=== PATIENT | female | born 1985 | race Two or more races ===

== ENCOUNTER 2018-10-22 13:29 | Emergency (ER) | payer MEDICAID ==
[~2018-10-22] VITALS: Ht 157.5 cm; Wt 63.5 kg
[2018-10-22 14:00] VITALS: BP 127/93
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
[2018-10-22] MEDS ORDERED: ROBAXIN-750750 MG PO (14:24)
[2018-10-22] MEDS ORDERED: IBUPROFEN600 MG ORAL (14:24)
[2018-10-22 14:45] VITALS: BP 127/93
--- NOTE | 2018-10-22 14:45 | NUR ---
ED Nurse Note: Pt cleared by health care Provider for discharge. DC instructions/prescription was given and explained to pt and verbalized understanding of teachings. All medical deviecs such as ID band removed. Pt is AAO x4, ambulatory and left with all personal belongings.
== END 2018-10-22 14:45 | disposition home or self-care (01) ==
LOC: EMR 14:30
DX: S00.83XA Contusion of other part of head, initial encounter (principal); Y04.8XXA Assault by other bodily force, initial encounter; Y93.9 Activity, unspecified; Y92.9 Unspecified place or not applicable
CPT/HCPCS: 99282

== ENCOUNTER 2018-11-07 17:04 | Emergency (ER) | payer MEDICAID ==
[~2018-11-07] VITALS: Ht 154.9 cm; Wt 68.0 kg
[~2018-11-07 17:04] MED LIST: IBUPROFEN600 MG ORAL; ROBAXIN-750750 MG PO
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
[2018-11-07] MEDS ORDERED: NAPROXEN500 M2 ORAL (17:28)
[2018-11-07] MEDS ORDERED: CYCLOBENZAPRINE10 MG ORAL (17:28)
[2018-11-07 17:29] VITALS: BP 102/70
--- NOTE | 2018-11-07 17:36 | NUR ---
ER DISCHARGE NOTE: Patient is cleared to be discharged per ERMD, pt is aox4, on room air, with stable vital signs. pt was given dc and prescription instructions, pt was able to verbalize understanding, pt id band removed. pt is able to ambulate with steady gait. pt took all belongings.
[2018-11-07 17:38] VITALS: BP 102/70
== END 2018-11-07 17:39 | disposition home or self-care (01) ==
LOC: EMR 17:20
DX: S16.1XXA Strain of muscle, fascia and tendon at neck level, initial encounter (principal); Y09 Assault by unspecified means; Y92.9 Unspecified place or not applicable
CPT/HCPCS: 99282